=== PATIENT | male | born 1985 | race Caucasian/White ===

== ENCOUNTER 2017-09-29 11:59 | Emergency (ER) | payer OTHER ==
[2017-09-29 12:16] VITALS: BP 134/72; PULSE 72; RESP 18; TEMP 99.1
--- NOTE | 2017-09-29 12:51 | XR ---
EXAMINATION TYPE: XR chest 2V DATE OF EXAM: 09/29/2017 COMPARISON: NONE HISTORY: Strep throat with chest pain. TECHNIQUE: Frontal and lateral views of the chest are obtained. FINDINGS: There is no focal air space opacity, pleural effusion, or pneumothorax seen. The cardiac silhouette size is within normal limits. The osseous structures are intact. IMPRESSION: No acute cardiopulmonary process.
--- NOTE | 2017-09-29 13:32 | ED ---
General Adult HPI - General Chief complaint: ENT Stated complaint: Strep throat Time Seen by Provider: 09/29/17 12:28 Source: patient, RN notes reviewed Mode of arrival: ambulatory Limitations: no limitations - History of Present Illness Initial comments: 32-year-old male presents to the emergency department for a chief complaint of sore throat 3 days. Patient states he has also had congestion and pain in the ears. Patient states his significant other was diagnosed with strep today and started on an antibiotic. Patient denies any fevers or chills at home. Patient also states he has generalized body aches and pains. He also has a cough. Patient denies history of asthma. Patient is a former smoker. Patient denies any wheezing. He has only tried Benadryl [id number]. Patient denies any shortness of breath, chest pain, abdominal pain, nausea or vomiting. - Related Data Home Medications Medication Instructions Recorded Confirmed Gabapentin [Neurontin] 300 mg PO TID 09/29/17 09/29/17 Allergies Allergy/AdvReac Type Severity Reaction Status Date / Time latex Allergy Rash/Hives Verified 09/29/17 13:29 Review of Systems ROS Statement: Those systems with pertinent positive or pertinent negative responses have been documented in the HPI. ROS Other: All systems not noted in ROS Statement are negative. Past Medical History Additional Past Medical History / Comment(s): back pain with nerve problems History of Any Multi-Drug Resistant Organisms: None Reported Past Surgical History: No Surgical Hx Reported Past Psychological History: No Psychological Hx Reported Smoking Status: Former smoker Past Alcohol Use History: Occasional Past Drug Use History: None Reported General Exam Limitations: no limitations General appearance: alert, in no apparent distress Head exam: Present: atraumatic, normocephalic, normal inspection Eye exam: Present: normal appearance, PERRL, EOMI. Absent: scleral icterus, conjunctival injection, periorbital swelling ENT exam: Present: mucous membranes moist, TM's normal bilaterally (TMs clear bilat), normal external ear exam. Absent: normal oropharynx (erythema of the throat) Neck exam: Present: normal inspection, full ROM. Absent: tenderness, meningismus, lymphadenopathy Respiratory exam: Present: normal lung sounds bilaterally. Absent: respiratory distress, wheezes, rales, rhonchi, stridor Cardiovascular Exam: Present: regular rate, normal rhythm, normal heart sounds. Absent: systolic murmur, diastolic murmur, rubs, gallop, clicks Course Vital Signs 09/29/17 12:11 Temperature 99.1 F Pulse Rate 72 Respiratory 18 Rate Blood Pressure 134/72 O2 Sat by Pulse 98 Oximetry Medical Decision Making - Medical Decision Making 32-year-old male presents to the emergency department for a chief complaint of sore throat 3 days. Patient also has cough, congestion, ear pain. No shortness of breath or chest pain. Patient's significant other was diagnosed with strep today. Patient is afebrile and O2 sat is 98% on room air. On exam, patient has erythema of the pharynx. Patient does have some mild congestion. No evidence of erythema in the throat or tonsillar exudates. Tympanic membranes clear. Lungs clear to auscultation bilaterally. Chest x-ray demonstrates no acute cardiopulmonary process. X-ray was reviewed by myself and Dr. Christian. Strep and flu are both negative. However, as patient does have a red sore throat and his significant other has strep we will cover him with amoxicillin. Patient requests amoxicillin before he leaves as he has to walk home. He was given a tablet in the emergency department. He will follow up with the primary care provider in one to 2 days. He can take Motrin or Tylenol for pain relief. He will return to the emergency department if he has any worsening symptoms. - Lab Data Lab Results 09/29/17 09/29/17 Range/Units 12:30 12:30 Influenza Type A RNA Not Detected (Not Detectd) Influenza Type B (PCR) Not Detected (Not Detectd) Group A Strep Rapid Negative (Negative) Disposition Clinical Impression: Acute viral pharyngitis Disposition: HOME SELF-CARE Condition: Good Instructions: Pharyngitis (ED) Additional Instructions: Please take amoxicillin as directed. Take Motrin or Tylenol for pain relief and fever reduction if necessary. Please follow-up with primary care provider in one to 2 days. Return to the emergency department if you have any worsening symptoms. Is patient prescribed a controlled substance at d/c from ED?: No Referrals: Marco Rosario MD [Primary Care Provider] - 1-2 days Time of Disposition: 13:52
[2017-09-29] MEDS ORDERED: AMOXICILLIN 875 MG TAB PO STA (13:47)
== END 2017-09-29 14:39 | disposition home or self-care (01) ==
LOC: EC 11:59
DX: J02.8 Acute pharyngitis due to other specified organisms (principal); H92.03 Otalgia, bilateral; Z87.891 Personal history of nicotine dependence; Z79.899 Other long term (current) drug therapy; Z91.040 Latex allergy status; Z86.69 Personal history of other diseases of the nervous system and sense organs
CPT/HCPCS: 71046; 87081; 87430; 87502; 99283

== ENCOUNTER 2023-12-11 19:32 | Emergency (ER) | payer BC, OTHER ==
[2023-12-11 19:36] VITALS: TEMP 97.8
--- NOTE | 2023-12-11 20:00 | ED ---
General Adult HPI - General Source: patient, police, RN notes reviewed Mode of arrival: ambulatory Limitations: no limitations <Lacy Contreras - Last Filed: 12/11/23 19:59> <Hemanth Ca - Last Filed: 12/11/23 21:17> - General Chief complaint: Extremity Injury, Lower Stated complaint: R Ankle Injury Time Seen by Provider: 12/11/23 19:59 - History of Present Illness Initial comments: Quick note: 38-year-old male presents to the emergency department for evaluation of right ankle injury. Patient states that he fell off a ladder about 3 days ago twisting his ankle. He states that he was picked up by police and had not had a chance to get his ankle looked at. He denies any other injury. (Lacy Contreras) Dictation was produced using [employer] dictation software. please excuse any grammatical, word or spelling errors. Chief Complaint: 38-year-old male presents with ankle injury History of Present Illness: Patient 30-year-old male presents to the emergency department with right ankle injury. Patient fell off a ladder approximately 2 to 3 days ago. He is brought in by [employer] because he had an x-ray done at the intermediate and was found to have a fracture. Sent here for further care. Patient states that he fell off a ladder 3 days ago landed on his leg and everted his ankle on the right. Patient has been ambulating since then. Patient is been ambulating with a limp. The ROS documented in this emergency department record has been reviewed and confirmed by me. Those systems with pertinent positive or negative responses have been documented in the HPI. All other systems are other negative and/or noncontributory. (Hemanth Ca) - Related Data Home Medications Medication Instructions Recorded Confirmed Gabapentin [Neurontin] 300 mg PO TID 09/29/17 09/29/17 Previous Rx's Medication Instructions Recorded Amoxicillin 875 mg PO Q12HR #20 tablet 09/29/17 HYDROcodone/APAP 5-325MG [Topping 1 tab PO Q6HR PRN 3 Days #12 tab 12/11/23 5-325] Allergies Allergy/AdvReac Type Severity Reaction Status Date / Time latex Allergy Rash/Hives Verified 12/11/23 19:35 Review of Systems ROS Other: All systems not noted in ROS Statement are negative. <Lacy Contreras - Last Filed: 12/11/23 19:59> ROS Other: All systems not noted in ROS Statement are negative. <Hemanth Ca - Last Filed: 12/11/23 21:17> ROS Statement: Those systems with pertinent positive or pertinent negative responses have been documented in the HPI. Past Medical History Additional Past Medical History / Comment(s): back pain with nerve problems History of Any Multi-Drug Resistant Organisms: None Reported Past Surgical History: No Surgical Hx Reported Past Psychological History: No Psychological Hx Reported Smoking Status: Never smoker Past Alcohol Use History: Occasional Past Drug Use History: None Reported <Lacy Contreras - Last Filed: 12/11/23 19:59> General Exam Limitations: no limitations <Lacy Contreras - Last Filed: 12/11/23 19:59> <Hemanth Ca - Last Filed: 12/11/23 21:17> - General Exam Comments Initial Comments: Visual Physical Exam Vital signs reviewed General: Well-appearing, nontoxic, no acute distress. Head: Normocephalic, atraumatic Eyes: PERRLA, EOMI ENT: Airway patent Chest: Nonlabored breathing Skin: No visual rash, normal skin tone Neuro: Alert and oriented 3 Musculoskeletal: No gross abnormalities (Lacy Contreras) General: Well-appearing, nontoxic, no acute distress. Head: Normocephalic, atraumatic Eyes: PERRLA, EOMI ENT: Airway patent Chest: Nonlabored breathing Skin: No visual rash, normal skin tone Neuro: Alert and oriented 3 Musculoskeletal: No gross abnormalities Right ankle: No gross deformity, palpatory tenderness to the medial malleolus (Hemanth Ca) Course Vital Signs 12/11/23 19:33 Temperature 97.8 F Pulse Rate 86 Respiratory 18 Rate Blood Pressure 125/83 O2 Sat by Pulse 97 Oximetry Procedures - Orthopedic Splinting/Casting Injury #1 Side: right Lower Extremity Injury Location: ankle Lower Extremity Immobilizer: posterior splint Other Orthopedic Equipment: crutches <Hemanth Ca - Last Filed: 12/11/23 21:17> Medical Decision Making <Lacy Contreras - Last Filed: 12/11/23 19:59> <MaurisiobraxtonyoniHemanth D - Last Filed: 12/11/23 21:17> - Medical Decision Making Quick note preformed and electronically signed by Lacy Contreras PA-C (Lacy Contreras) Was pt. sent in by a medical professional or institution (SEKOU Recinos, OFFICE DIRECTOR, urgent care, hospital, or fdc...) When possible be specific@ -Sent in from the jailDid you speak to anyone other than the patient for history (EMS, parent, family, police, friend...)? What history was obtained from this source @ - [employer] at the bedside states that patient had an ankle injury prior to being arrestedDid you review nursing and triage notes (agree or disagree)? Why? @ -I reviewed and agree with nursing and triage notesWere old charts reviewed (outside hosp., previous admission, EMS record, old EKG, old radiological studies, urgent care reports/EKG's, fdc records)? Report findings @ - No old charts were reviewedDifferential Diagnosis (chest pain, altered mental status, abdominal pain women, abdominal pain men, vaginal bleeding, musculoskeletal, weakness, fever, dyspnea, syncope, headache, dizziness, GI bleed, back pain, seizure, CVA, palpatations, mental health)? @ -Ankle fracture, trimalar fractureEKG interpreted by me (3pts min.).@ -None doneX-rays interpreted by me (1pt min.).@ -Ankle x-ray on the right ankle shows medial malleolus fractureCT interpreted by me (1pt min.).@ -None doneU/S interpreted by me (1pt. min.).@ -None doneWhat testing was considered but not performed or refused? (CT, X-rays, U/S, labs)? Why?@ -NoneWhat meds were considered but not given or refused? Why?@ -NoneWas smoking cessation discussed for >3mins.?@ - NoWere there social determinants of health that impacted care today? How? (Homelessness, low income, unemployed, alcoholism, drug addiction, trans portation, low edu. Level, literacy, decrease access to med. care, intermediate, rehab)?@ -NoWas there de-escalation of care discussed even if they declined (Discuss DNR or withdrawal of care, Hospice)? DNR status@ -NoWhat co- morbidities impacted this encounter? (DM, HTN, Smoking, COPD, CAD, Cancer, CVA, ARF, Chemo, Hep., AIDS, mental health diagnosis, sleep apnea, morbid obesity)?@ -NoneWas patient admitted / discharged? Hospital course, mention meds given and route, prescriptions, significant lab abnormalities, going to OR and other pertinent info.@ -38year-old male presents to the emergency department medial malleolus fracture. X-ray shows medial malleolus fracture. Injury is reportedly 2 days prior patient placed in a posterior mold splint. Discharged with outpatient referral to orthopedic surgeryDid you discuss the management of the patient with other professionals (professionals i.e. , PA, OFFICE DIRECTOR, lab, RT, psych nurse, social work professor, periodontal assistant, teacher, founder and chief executive officer, rn case mgr)? Give summary@ -NoWas critical care preformed (if so, how long)?@ -NoUndiagnosed new problem with uncertain prognosis?@ -NoDrug Therapy requiring intensive monitoring for toxicity (Heparin, Nitro, Insulin, Cardizem)?@ -NoWere any procedures done?@ -See above diagnosis/symptom? Acute, or Chronic, or Acute on Chronic? Uncomplicated (without systemic symptoms) or Complicated (systemic symptoms)?@ -Medial malleolus fractureSide effects of treatment?@ - NoExacerbation, Progression, or Severe Exacerbation?@ -NoPoses a threat to life or bodily function? How? (Chest pain, [place], [place], pneumonia, PE, COPD, DKA, ARF, appy, cholecystitis, CVA, Diverticulitis, Homicidal, Suicidal, threat to staff... and all critical care pts)@ -yes (Hemanth Ca) Disposition <Lacy Contreras - Last Filed: 12/11/23 19:59> Is patient prescribed a controlled substance at d/c from ED?: No Time of Disposition: 21:15 <Hemanth Ca - Last Filed: 12/11/23 21:17> Clinical Impression: Fractured medial malleolus Disposition: HOME SELF-CARE Condition: Fair Instructions (If sedation given, give patient instructions): Ankle Fracture (DC) Additional Instructions: no weight bearing to right ankle Prescriptions: HYDROcodone/APAP 5-325MG [Topping 5-325] 1 tab PO Q6HR PRN 3 Days #12 tab PRN Reason: Severe Pain Referrals: Marv Campos DO [Doctor of Osteopathic Medicine] - 1-2 days
[2023-12-11] MEDS: MORPHINE SULFATE 4 MG/ML SYRINGE IM STA (21:11)
--- NOTE | 2023-12-11 21:31 | XR ---
EXAMINATION TYPE: XR ankle complete RT DATE OF EXAM: 12/11/2023 CLINICAL HISTORY: Pain after twisting ankle. TECHNIQUE: Frontal, lateral and oblique images of the right ankle are obtained. COMPARISON: None. FINDINGS: There is a mildly displaced mildly comminuted fracture involving the medial malleolus. No additional discrete fractures or dislocations appreciated. There is a calcific focus seen within the anterior lower extremity soft tissues which may represent a loose fracture component. There is modera te soft tissue swelling surrounding the ankle and partially visualized foot. No other radiopaque fore ign bodies appreciated. IMPRESSION: Mildly displaced mildly comminuted fracture of the right ankle medial malleolus with moderate surroun ding soft tissue edema.
[2023-12-11 21:36] VITALS: BP 136/84; PULSE 94; RESP 22
== END 2023-12-11 21:25 | disposition home or self-care (01) ==
LOC: EC 19:32
DX: S82.51XA Displaced fracture of medial malleolus of right tibia, initial encounter for closed fracture (principal); Z91.040 Latex allergy status; W11.XXXA Fall on and from ladder, initial encounter
CPT/HCPCS: 73610; 99284; 96372; J2270